=== PATIENT | male | born 1995 | race Two or more races ===

== ENCOUNTER 2018-02-03 18:15 | Inpatient (IN) | payer SELFPAY ==
[2018-02-03] MEDS ORDERED: ONDANSETRON 4 MG/2 ML VIAL IVP ONE (18:40)
--- NOTE | 2018-02-03 18:43 | EDPHY ---
H & P Time Seen by Provider: 02/03/18 18:33 HPI/ROS: CHIEF COMPLAINT: Nausea vomiting abdominal cramping HISTORY OF PRESENT ILLNESS: 22-year-old man started having nausea and multiple episodes of vomiting at 9:00 a.m. Today. 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 Symptoms moderate, worse with oral intake. Not associated with diarrhea. No injury or fall or trauma. REVIEW OF SYSTEMS: Eye: no change in vision ENT: no sore throat Cardiac: no chest pain or syncope Pulmonary: no cough or SOB Abdomen: HPI Musculoskeletal: Leg cramping Skin: no rash Neuro: Mild headache Constitutional: no fever : no urinary symptoms A comprehensive 10 point review of systems is otherwise negative aside from elements mentioned in the history of present illness. PAST MEDICAL HISTORY: Negative Social history: Here with brother and parents General Appearance: Alert and conversant, cooperative. Eyes: No scleral icterus. ENT, Mouth: Dry mucous membranes. Respiratory: Normal respiratory effort, breath sounds equal, lungs are clear to auscultation. Cardiovascular: Regular rate and rhythm. Gastrointestinal: Mild right upper quadrant tenderness but no rebound or guarding. Neurological: Alert, face symmetric, normal motor and sensory in extremities. Skin: Warm and dry, no rashes. Musculoskeletal: No peripheral edema. Psychiatric: Not agitated. Emergency Department course/MDM: I-STAT, CBC chemistry LFT and lipase. Zofran 4 mg IV for nausea, IV hydration. 191: Results discussed with patient, admission for acute kidney injury with severe dehydration. Normal saline 2 L IV. Smoking Status: Never smoked Constitutional: Initial Vital Signs Temperature (C) 36.5 C 02/03/18 18:20 Heart Rate 109 H 02/03/18 18:20 Respiratory Rate 18 02/03/18 18:20 Blood Pressure 111/76 02/03/18 18:20 O2 Sat (%) 95 02/03/18 18:20 O2 Delivery Mode Room Air Allergies/Adverse Reactions: No Known Allergies Allergy (Verified 02/03/18 18:19) Home Medications: Medication Instructions Recorded NK [No Known Home Meds] 02/03/18 Medical Decision Making Differential Diagnosis: Differential diagnosis considered for nausea and vomiting including but not limited to gastroenteritis, gastritis, appendicitis, and medication side effect. Consult/Admit Bed Type: [place] [id number] - Data Points Laboratory Results: Laboratory Results 02/03/18 18:43 02/03/18 18:43 02/03/18 02/03/18 02/03/18 18:44 18:43 18:43 WBC 22.43 10^3/uL H 10^3/uL (3.80-9.50) RBC 6.54 10^6/uL H 10^6/uL (4.40-6.38) Hgb 19.4 g/dL H g/dL (13.7-17.5) POC Hgb 19.0 gm/dL H gm/dL (13.7-17.5) Hct 53.7 % H % (40.0-51.0) POC Hct 56 % H % (40-51) MCV 82.1 fL fL (81.5-99.8) MCH 29.7 pg pg (27.9-34.1) MCHC 36.1 g/dL g/dL (32.4-36.7) RDW 13.4 % % (11.5-15.2) Plt Count 399 10^3/uL 10^3/uL (150-400) MPV 9.9 fL fL (8.7-11.7) Neut % (Auto) 83.6 % H % (39.3-74.2) Lymph % (Auto) 11.3 % L % (15.0-45.0) [place] % (Auto) 4.4 % L % (4.5-13.0) Eos % (Auto) 0.0 % L % (0.6-7.6) Baso % (Auto) 0.3 % % (0.3-1.7) Nucleat RBC Rel Count 0.0 % % (0.0-0.2) Absolute Neuts (auto) 18.77 10^3/uL H 10^3/uL (1.70-6.50) Absolute Lymphs (auto) 2.54 10^3/uL 10^3/uL (1.00-3.00) Absolute Monos (auto) 0.98 10^3/uL H 10^3/uL (0.30-0.80) Absolute Eos (auto) 0.00 10^3/uL L 10^3/uL (0.03-0.40) Absolute Basos (auto) 0.06 10^3/uL 10^3/uL (0.02-0.10) Absolute Nucleated RBC 0.00 10^3/uL 10^3/uL (0-0.01) Immature Gran % 0.4 % % (0.0-1.1) Immature Gran # 0.08 10^3/uL 10^3/uL (0.00-0.10) POC Sodium 140 mEq/L mEq/L (135-145) Sodium 145 mEq/L mEq/L (135-145) POC Potassium 4.1 mEq/L mEq/L (3.3-5.0) Potassium 4.6 mEq/L mEq/L (3.3-5.0) POC Chloride 104 mEq/L mEq/L (97-110) Chloride 99 mEq/L mEq/L (97-110) Carbon Dioxide 14 mEq/l L mEq/l (22-31) Anion Gap 32 mEq/L H mEq/L (8-16) POC BUN 32 mg/dL H mg/dL (7-23) BUN 28 mg/dL H mg/dL (7-23) Creatinine 3.3 mg/dL H mg/dL (0.7-1.3) POC Creatinine 3.3 mg/dL H mg/dL (0.7-1.3) Estimated GFR 24 Glucose 194 mg/dL H mg/dL (70-100) POC Glucose 195 mg/dL H mg/dL (70-100) Calcium 11.9 mg/dL H mg/dL (8.5-10.4) Phosphorus Pending Total Bilirubin 2.1 mg/dL H mg/dL (0.1-1.4) Conjugated Bilirubin 0.7 mg/dL H mg/dL (0.0-0.5) Unconjugated Bilirubin 1.4 mg/dL H mg/dL (0.0-1.1) AST 41 IU/L IU/L (17-59) ALT 43 IU/L IU/L (21-72) Alkaline Phosphatase 103 IU/L IU/L (38-126) Creatine Kinase 607 IU/L H IU/L (0-224) CK-MB (CK-2) Fraction Pending CK-MB (CK-2) % Pending Creatine Kinase Interp Pending Total Protein Pending Albumin Pending Lipase 50 IU/L IU/L (23-300) Medications Given: Discontinued Medications Sodium Chloride (Ns) 1,000 mls @ 0 mls/hr IV EDNOW ONE; Wide Open PRN Reason: Protocol Stop: 02/03/18 18:59 Last Admin: 02/03/18 19:06 Dose: 1,000 mls Ondansetron HCl (Zofran) 4 mg IVP EDNOW ONE Stop: 02/03/18 18:41 Last Admin: 02/03/18 18:45 Dose: 4 mg Point of Care Test Results: Chemistry 02/03/18 18:44 POC Sodium 140 mEq/L mEq/L (135-145) POC Potassium 4.1 mEq/L mEq/L (3.3-5.0) POC Chloride 104 mEq/L mEq/L (97-110) POC BUN 32 mg/dL H mg/dL (7-23) POC Creatinine 3.3 mg/dL H mg/dL (0.7-1.3) POC Glucose 195 mg/dL H mg/dL (70-100) ISTAT H&H 02/03/18 18:44 POC Hgb 19.0 gm/dL H gm/dL (13.7-17.5) POC Hct 56 % H % (40-51) Departure - Departure Disposition: [facility] Inpatient Acute Clinical Impression: Acute kidney injury Nausea & vomiting Qualifiers: Vomiting type: unspecified Vomiting Intractability: non-intractable Qualified Code(s): R11.2 - Nausea with vomiting, unspecified Condition: Fair
[2018-02-03 18:53] LABS: PLATELET COUNT 399 10^3/uL (150-400)
[2018-02-03] MEDS ORDERED: NS 1,000 ML IV ONE ×2 (18:58)
[2018-02-03 19:09] LABS: CREATINE KINASE 607 IU/L (0-224)
[2018-02-03] MEDS ORDERED: ONDANSETRON 4 MG/2 ML VIAL IVP PRN (20:38)
[2018-02-03] MEDS ORDERED: ONDANSETRON DISINTEGRATING 4 MG TAB PO PRN (20:38)
[2018-02-03] MEDS ORDERED: oxyCODONE IR 5 MG TAB PO PRN (20:38)
[2018-02-03] MEDS ORDERED: ZOLPIDEM TARTRATE 5 MG TAB PO PRN (20:38)
[2018-02-03] MEDS ORDERED: PROMETHAZINE HCL 25 MG/ML INJ IVP PRN (20:38)
[2018-02-03] MEDS ORDERED: ACETAMINOPHEN 325 MG TAB PO PRN (20:38)
[2018-02-03] MEDS ORDERED: NS 1,000 ML IV SCH (20:45)
--- NOTE | 2018-02-03 22:10 | GHP ---
[f rep st] HISTORY AND PHYSICAL DATE OF ADMISSION: 02/03/2018 CHIEF COMPLAINT: Nausea, vomiting. HISTORY: This is a 22-year-old man with no significant past medical history, who presents with compl aints of nausea, vomiting, and dizziness all day today. The patient notes that yesterday he felt wel l other than some cramping in his muscles. 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 He notes that he, shortly after arriving at work, developed some persistent nausea, vomit ing that went on through the majority of the day today. He continued to work despite that. He notes he was out in the heat for much of the day. He became significantly dizzy at one point this afterno on and noted, again, recurrent cramping in his muscles. At that point, he decided to come to the [facility] room for further evaluation. He notes he has never had similar issues in the past. He notes that currently, he feels much better with decreased cramping and no longer feeling nauseous. He has not had any urine output since 10 a.m. this morning. He has not really eaten or drank anything, diego martinez, either. PAST MEDICAL HISTORY: Denies. PAST SURGICAL HISTORY: Denies. FAMILY HISTORY: Mother with diabetes. SOCIAL HISTORY: Patient drinks occasionally on the weekend. He is a nonsmoker, non-drug user. Work ing in construction. REVIEW OF SYSTEMS: 10-point review of systems obtained, negative except as per HPI. HOME MEDICATIONS: None. ALLERGIES: None. PHYSICAL EXAM: VITAL SIGNS: BP 125/79, heart rate 79, respiratory rate 16, O2 sats 94% on room air. Temperature is 36.8. GENERAL APPEARANCE: This is a well-developed/[place] young man. He is awake and alert. He is in no acute distress. EYES: Anicteric. HENT: Oropharynx is cl ear. Moist mucous membranes. CARDIOVASCULAR: Regular rate and rhythm. No M/R/G. PULMONARY: CTA bilaterally. Normal work of breathing. ABDOMEN: Soft, nontender, nondistended. EXTREMITIES: No c lubbing, cyanosis, or edema. SKIN: Warm, dry, well perfused. NEURO/PSYCH: Oriented, appropriate, pleasant. CLINICAL DATA: Labs reviewed and notable for a white blood cell count of 22.43, hemoglobin of 19.4, hematocrit of 53.7, platelets of 399. Chemistry is notable for an anion gap of 32, BUN of 28, creati nine of 3.3, glucose of 194, phos of 5.6, total bilirubin of 2.1. ASSESSMENT AND PLAN: This is a 22-year-old man, no significant past medical history, presenting stat us post nausea, vomiting all day in the heat with acute kidney injury and mild rhabdomyolysis. 1. Acute kidney injury. This is presumably all prerenal given his history of profound nausea, vomit ing while out in the sun. There is, of course, concern that the nausea, vomiting, cramping were seco ndary to his acute kidney injury and not the cause of it. At this time, he has been volume resuscita donell in the emergency department, status post 3 L of saline. We will recheck a creatinine now and a f ull basic metabolic panel in the morning. We will continue intravenous fluids overnight. Urinalysis , along with a urine sodium and creatinine have been ordered, although patient, thus far, has been un able to urinate. We will perform a bladder scan, and if still the patient is unable to urinate, inse rt a Rodriguez catheter. We will check a drug screen, as well as a serum and urine osmolality just to ev aluate for possible ingestions. 2. Anion gap metabolic acidosis. Patient with a significantly high anion gap of 32. This could all be due to his acute kidney injury; however, again, we will workup for possible ingestions as above a nd obtain a lactic acid level and ketones. We will recheck in the morning. 3. Polycythemia. Presume this is a secondary polycythemia related to volume depletion as above. Ag ain, we will check CBC in the morning. 4. Leukocytosis. This is significantly elevated, but I do suspect that some of this is related to v olume depletion as well. Again, recheck a CBC in the morning. No evidence of infection at this poin t. 5. Hyperglycemia. Could be stress response, though the patient does have family history of diabetes . We will check a hemoglobin A1c. We will check a fingerstick glucose tonight to be sure this is no t going up. 6. Inpatient status. Suspect patient will need a [id number]-hour stay for evaluation and manag ement of above given significant lab abnormalities on presentation. 7. Patient is new to my care. Old records reviewed, summarized as per History of Present Illness an d Past Medical History. Care plan reviewed with patient's family present at bedside. /[id number]/MODL
[2018-02-04 05:26] LABS: PLATELET COUNT 254 10^3/uL (150-400)
[2018-02-04 05:38] LABS: CREATINE KINASE 1075 IU/L (0-224)
[2018-02-04 12:19] VITALS: BP 105/57
--- NOTE | 2018-02-04 12:22 | ASMTCMCOM ---
CM Note CM Note Notes: Reviewed chart, no needs identified. Anticipate pt will dc home w/support of family when medically stable. CM available for any changes. DC Plan: Independent Date Signed: 02/04/2018 12:21 PM Electronically Signed By:Sunshine Desai RN
--- NOTE | 2018-02-04 13:39 | PDDCSUM ---
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 He had felt very thirsty but found that he was starting to have nausea and vomiting and was and able to keep any fluids down in the afternoon. He did not have any other particular symptoms. He does not use any alcohol or street drugs, and he has no underlying illnesses. He denies use of any antihistamines or other similar medicines. On presentation he was found to have unremarkable vital signs but to look quite ill, and have significant evidence of hemoconcentration with a hemoglobin of 19 , and also evidence of acute renal failure with creatinine 3.3 and rhabdomyolysis with elevated CPK. He was diagnosed with heat stroke and admitted the hospital with vigorous IV hydration. Overnight he has improved quite nicely. His symptoms of nausea vomiting weakness have resolved and isn't now eating without difficulty. There has been no fever. There is no sign of any infection. His renal function has resolved her creatinine of 1.2. His CPK is slightly higher at 1000. However he has only mild muscle symptoms and is able to get up and ambulate without difficulty. Is expected he will recover from this nicely as long as he keeps out of the heat and sun for a couple more days and keep very well hydrated. He is instructed to avoid all nonsteroidal anti-inflammatory medicines, all alcohol and all street drugs none of which were with the things that he takes at all in the past. The potential complications of heat stroke were reviewed in detail with the patient and his family. The patient was instructed to always during warm or hot weather begin his day by hydrating aggressively before going outdoors and continue aggressive hydration through the day. He is instructed where appropriate sun protective clothing, and to intermittently get some rest in a stated place intermittently preferably in a cold environment if possible. Is also recommended that he consider carrying a cooler of ice water in a towel that he can drip or from soft to cool himself off when necessary. He understands all these instructions recommendations and his questions have been answered. PENDING TEST RESULTS: None MEDICATION CHANGES: None FOLLOW-UP PLAN: With primary care physician as needed Greater than 35 minutes bedside and care coordination time today
== END 2018-02-04 12:59 | disposition home or self-care (01) | DRG 683 ==
LOC: OBSVTOIN 19:14 → F3E 20:05
PROVIDERS: ADMIT Internal Medicine; ATTEND Internal Medicine
DX: N17.9 Acute kidney failure, unspecified (principal); E86.0 Dehydration; T67.0XXA Heatstroke and sunstroke, initial encounter; X30.XXXA Exposure to excessive natural heat, initial encounter; T79.6XXA Traumatic ischemia of muscle, initial encounter; Y93.H9 Activity, other involving exterior property and land maintenance, building and construction; Y99.0 Civilian activity done for income or pay
CPT/HCPCS: 80307; 82435-PO; 82565-PO; 82947-PO; 84132-PO; 84295-PO; 84520-PO; 85014-PO; 96374; G0480; J2405